=== PATIENT | male | born 1955 | race Caucasian/White ===

== ENCOUNTER 2020-05-05 14:02 | Emergency (ER) | payer OTHER, MEDICARE, BC ==
[2020-05-05] MEDS ORDERED: Diphtheria,Pertussis(Acell),Tetanus Vaccine 0.5 ML Syringe IM ONE (14:26)
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
[2020-05-05] MEDS ORDERED: Acetaminophen 500 MG Tab PO ONE (15:40)
[2020-05-05] MEDS ORDERED: Magnesium Oxide 400 MG Tab PO ONE (15:59)
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
== END 2020-05-05 16:00 | disposition home or self-care (01) ==
LOC: FB.ED 14:02
DX: S06.0X9A Concussion with loss of consciousness of unspecified duration, initial encounter (principal); R55 Syncope and collapse; S80.212A Abrasion, left knee, initial encounter; L08.9 Local infection of the skin and subcutaneous tissue, unspecified; E11.649 Type 2 diabetes mellitus with hypoglycemia without coma; I49.9 Cardiac arrhythmia, unspecified; Z23 Encounter for immunization; Z79.4 Long term (current) use of insulin; V89.2XXA Person injured in unspecified motor-vehicle accident, traffic, initial encounter
CPT/HCPCS: 36415; 70450; 71046; 80053; 83735; 84484; 85025; 90471; 90715; 93005; 93010; 99285; A9270